=== PATIENT | male | born 1980 | race Caucasian/White ===

== ENCOUNTER 2018-08-31 21:41 | Observation (INO) | payer SELFPAY ==
[2018-08-31] MEDS ORDERED: NORMAL SALINE 1,000 ML IV.SOLN IV ONE (22:38)
[2018-09-01] MEDS ORDERED: KETOROLAC TROMETHAMINE 30 MG/1ML VIAL ONE ×2 (00:53→01:22)
[2018-09-01] MEDS ORDERED: NORMAL SALINE 1,000 ML IV.SOLN IV ONE ×2 (00:53→04:25)
[2018-09-01] MEDS ORDERED: NICOTINE 21mg 1 EACH PATCH.TD24 TD ONE (09:21)
[2018-09-17 13:08] LABS: eGFR (Non-African) > 60
[2018-09-17 13:09] LABS: BASOPHILS % 0.6 % (0.0-1.5); NEUTROPHILS # 10.3 # k/uL (1.4-7.7)
[2018-09-18 11:30] LABS: BASOPHILS % 0.5 % (0.0-1.5); NEUTROPHILS # 5.8 # k/uL (1.4-7.7); eGFR (Non-African) > 60
--- NOTE | 2018-10-17 13:53 | Diagnostic Imaging Report ---
MILTON PUENTE (GLOBAL ENGINEERING MANAGER) - ER [facility] [id number] [id number] Report Submission Date: Aug 31, 2018 11:31:56 PM CDT Patient Study Name: KARTIK ROSE Date: Aug 31, 2018 11:07:25 PM CDT Modality Type: DX Gender: M Description: TIBIA FIBULA 2 VIEW : 78 Institution: [facility] Physician: MILTON PUENTE (KIRAN) - ER Left tibia and fibula History: Posterior leg pain AP and lateral projections of the left tibia and fibula were obtained which demonstrate a mild deformity with a thin band of sclerosis involving the distal shaft of the tibia, most consistent with the sequelae of an old, healed fracture. No additional osseous abnormalities are noted. Impression: At the distal shaft of the left tibia, there is mild deformity with a thin band of sclerosis. These findings are most consistent with an old, healed fracture deformity. Electronically signed on Aug 31, 2018 11:31:56 PM CDT by: Annette MARCANO
== END 2018-09-01 13:35 | disposition home or self-care (01) ==
LOC: ED 21:41 → SOUTH 21:42
PROVIDERS: ADMIT Family Medicine; ATTEND Family Medicine
DX: M79.662 Pain in left lower leg (principal)
CPT/HCPCS: 36415; 73590; 80048; 80053; 82550; 82553; 83605; 84484; 85025; 85379; 99218; G0378; J1885; J7030; S1016